=== PATIENT | male | born 1990 | race Caucasian/White ===

== ENCOUNTER 2016-08-01 18:07 | Emergency (ER) | payer MEDICARE, MEDICAID ==
[~2016-08-01] VITALS: Ht 175.3 cm; Wt 90.9 kg
[~2016-08-01 18:07] MED LIST: BENZ1TAB7 PO; HYDR-3797 PO; HYDR50CA PO; OLAN2.5T20 PO; PALI234D IM
[2016-08-01 19:14] VITALS: BP 130/85; PULSE 106; RESP 16; O2SAT 100
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
== END 2016-08-01 20:06 | disposition home or self-care (01) ==
LOC: SED 18:07
DX: R45.89 Other symptoms and signs involving emotional state (principal); Z59.0 Homelessness; F20.9 Schizophrenia, unspecified; Z87.891 Personal history of nicotine dependence

== ENCOUNTER 2017-03-23 11:36 | Emergency (ER) | payer MEDICARE, MEDICAID ==
[~2017-03-23] VITALS: Ht 175.3 cm; Wt 80.0 kg
[~2017-03-23 11:36] MED LIST changes: -OLAN2.5T20 PO; +OLAN2.5T28 PO
[2017-03-23 11:50] VITALS: BP 131/78; PULSE 76; RESP 22; O2SAT 98
--- NOTE | 2017-03-23 13:26 | ED.REPORT ---
HPI-General Illness Date of Service Mar 23, 2017 ED Provider: Isaac Kong MD A 26 year old male with a history of schizoaffective disorder presents to the ED with bilateral blurry vision that initially began one month ago but became increasingly worse this afternoon. The patient reports that he has been experiencing intermittent episodes of visual disturbance and eye pressure for the past month. He denies any similar previous symptoms and currently wears prescription glasses. He denies any recent haedache, fever or chills. Nursing Notes Stated Complaint: HIGH LEVELS OF CARBON DIOXIDE IN SYSTEM??? Chief Complaint: General Complaint Nursing Notes Reviewed: Yes Allergies: Coded Allergies: No Known Allergies (Unverified Allergy, Unknown, 12/01/15) Scheduled Paliperidone Palmitate Inj (Invega Sustenna) 234 Mg/1.5 Ml Syringe 234 MG IM Q21D Scheduled PRN Benztropine Mesylate (Benztropine Mesylate) 1 Mg Tablet 1 MG PO BID PRN PRN Tremor/stiffness/EPS Hydroxyzine Pamoate (Vistaril) 50 Mg Capsule 50 MG PO HS PRN PRN For Insomnia Hydroxyzine Pamoate (HydrOXYzine Pamoate) 25 Mg Capsule 50 MG PO Q4H PRN PRN anxiety/agitation/insomnia Olanzapine (Olanzapine) 2.5 Mg Tablet 2.5 MG PO Q6H PRN PRN Severe Agitation take 1-2 tabs as needed q 6h for anxiety agitation General Time Seen by MD: 13:10 Chief Complaint Other (Blurry vision ) Hx Obtained From: Patient Arrived By: Walk-in Sudden in Onset?: No Onset Occurred: More than a week ago... (4 weeks) Symptom Duration: Intermittent Associated with: Denies: Fever, Headache Pertinent Negative: Pt denies other symptoms Recent Healthcare: No recent doctor visit, No recent hospitalization Similar Sx Previous: No Past Medical History Past Medical History Schizoaffective disorder Past Surgical History None reported Smoking History Former Smoker Social History Drug Use: Denies drug use Other Social History: Good social support, Local resident Ambulatory Status Independent Review of Systems Full Review of Systems Eyes: Reports: Blurred bilateral, Eye pain bilateral (pressure) GI: Denies: Nausea, Vomiting Neurologic: Denies: Headache Complete sys rev & neg: except as marked. Physical Exam Vital Signs Vital Signs Date Time Temp Pulse Resp B/P Pulse Ox O2 Delivery O2 Flow Rate FiO2 03/23/17 11:50 36.8 76 22 131/78 98 Room Air Initial VS: Reviewed Neck: Supple, Non-tender, Full range of motion Extremities: Vascular intact, Neuro intact, No swelling, No tenderness Skin: Warm, Dry, No cyanosis Neurologic: Alert, Oriented, Nonfocal Psychiatric: Mood/affect normal, Behavior normal, Normal thought content General/Constitutional: Awake, Alert, No acute distress Head / Eyes: Atraumatic, Normocephalic, PERRL, EOMI, No nystagmus, No photophobia ENT: Atraumatic, Airway patent, Mucous membranes moist, Pharynx NL Respiratory / Chest: Atraumatic, Breath sounds NL, Breath sounds = bilat, No respiratory distress Cardiovascular: Heart rate NL, Regular rhythm, Heart sounds NL, No murmurs Abdomen: Atraumatic, Soft Neurologic: Oriented X3, Speech NL, No motor deficits, No sensory deficits, CN II - XII intact, Reflexes equal bilat Re-Eval/Medical Decision Med Decision/Clinical Course 26-year-old male history of schizoaffective disorder presenting with blurry vision one month ago. Reports this comes and goes. His visual acuity is normal here. He is asymptomatic at this time. No sign symptoms stroke. He has no other associated symptoms. No neuro deficits or visual deficits at this time. Patient is a poor historian. Do not expect any emergent pathology given his symptoms have resolved here and his vague symptomatology. He will follow-up with the eye doctor and his primary doctor early next week. Return precautions given. Time of Eval: 13:38 Patient Status: Condition improved Re-Evaluation/Progress Note: Patient condition is re-evaluated. He is informed of his reassuring results. All questions about the intended treatment plan are addressed. He understands and agrees with the current plan. EYE EXAM: 20/16 (R and L) Counseled Regarding: Diagnosis, Need for follow-up, When/why to return to ED Discharge & Departure Primary Impression: Blurry vision, bilateral Disposition: Home Discharge Condition All VS Reviewed: Yes Condition: Improved Patient Instructions: Blurred Vision (ED) Additional Instructions: Thank you for trusting us with your care this morning. Your emergency department evaluation today is reassuring that there is no emergent cause for concern at this time. A clear cause of your symptoms was not identified at this time, so I recommend that you schedule a follow up appointment with ophthalmology in the next week for a recheck. Continue to take your home medications as directed. Please return to the emergency department for any new or worsening symptoms including any headache, neck pain, nausea, vomiting, facial droop or unilateral numbness/tingling or weakness. Referrals: Cuco Delvalle DO (PCP) Michaelaibe Attestation Portions of this note were transcribed by Victor Hugo Stern. I, Dr. Kong personally performed the history, physical exam and medical decision-making; I reviewed and confirmed the accuracy of the information in the transcribed note. Signed by Brice Valdez, 03/23/17. copies to: Cuco Delvalle Ben M MD Mar 23, 2017 13:26 VICTOR HUGO STERN Mar 23, 2017 13:33
== END 2017-03-23 14:04 | disposition home or self-care (01) ==
LOC: SED 11:36
DX: H53.8 Other visual disturbances (principal); Z87.891 Personal history of nicotine dependence